=== PATIENT | male | born 1960 | race Caucasian/White ===

== ENCOUNTER 2016-11-28 06:26 | Day surgery (SDC) | payer BC ==
--- NOTE | ~2016-11-28 | EGD ---
EGD REPORT [facility] [address] [address] NAME: IRENE MOFFETT : [birth year] STATUS : REG [facility] PAT#: [id number] AGE: 56 ADM/REG DATE : 11/28/16 MR#: [id number] REPORT SERV DATE: 11/28/16 DICTATED BY: LAVERN BETTENCOURT DATE: 11/28/16 REPORT STATUS : Draft TRANSCRIBED BY: [facility] DATE: 11/28/16 [facility] Patient Name: Irene Moffett Date of : 1960 Attending MD: LAVERN BETTENCOURT MD Procedure Date No Time: 11/28/2016 Procedure: Colonoscopy Indications: Screening for colorectal malignant neoplasm, Personal history of malignant neoplasm of the prostate Referring MD: MANUEL WATKINS MD Medicines: Propofol per Anesthesia Complications: No immediate complications. Estimated blood loss: None. Procedure: Pre-Anesthesia Assessment: - After reviewing the risks and benefits, the patient was deemed in satisfactory condition to undergo the procedure. - Prior to the procedure, a History and Physical was performed, and patient medications and allergies were reviewed. The patient's tolerance of previous anesthesia was also reviewed. The risks and benefits of the procedure and the sedation options and risks were discussed with the patient. All questions were answered, and informed consent was obtained. Prior Anticoagulants: The patient has taken no previous anticoagulant or antiplatelet agents. ASA Grade Assessment: III - A patient with severe systemic disease. After reviewing the risks and benefits, the patient was deemed in satisfactory condition to undergo the procedure. After I obtained informed consent, the scope was passed under direct vision. Throughout the procedure, the patient's blood pressure, pulse, and oxygen saturations were monitored continuously. The CF [id number] was introduced through the anus and advanced to the cecum, identified by appendiceal orifice and ileocecal valve. The colonoscopy was somewhat difficult due to significant looping and the patient's body habitus. Successful completion of the procedure was aided by applying abdominal pressure. The ileocecal valve and appendiceal orifice were photographed. The patient tolerated the procedure well. The quality of the bowel preparation was adequate. The bowel preparation used was polyethylene glycol (PEG). Scope withdrawal time was greater than 10 minutes. Findings: EGD REPORT [address] [place]. [address] NAME: IRENE MOFFETT : [birth year] STATUS : REG [facility] PAT#: [id number] AGE: 56 ADM/REG DATE : 11/28/16 MR#: [id number] REPORT SERV DATE: 11/28/16 DICTATED BY: LAVERN BETTENCOURT DATE: 11/28/16 REPORT STATUS : Draft TRANSCRIBED BY: [employer] DATE: 11/28/16 The perianal and digital rectal examinations were normal. Pertinent negatives include normal sphincter tone. A sessile polyp was found at the hepatic flexure. The polyp was 4 mm in size. The polyp was removed with a cold biopsy forceps. Resection and retrieval were complete. Estimated blood loss: none. A sessile polyp was found in the sigmoid colon. The polyp was 6 mm in size. The polyp was removed with a cold snare. Resection and retrieval were complete. Estimated blood loss: none. The exam was otherwise without abnormality. Impression: - One 4 mm polyp at the hepatic flexure. Resected and retrieved. - One 6 mm polyp in the sigmoid colon. Resected and retrieved. - The examination was otherwise normal. Recommendation: - Discharge patient to home (ambulatory). - Return to previous diet. - Continue present medications. - Await pathology results. - Repeat colonoscopy in 5 years for surveillance. - Patient has a contact number available for emergencies. The signs and symptoms of potential delayed complications were discussed with the patient. Return to normal activities tomorrow. Written discharge instructions were provided to the patient. Procedure Code(s): --- Professional --- 87266, Colonoscopy, flexible, proximal to splenic flexure; with removal of tumor(s), polyp(s), or other lesion(s) by snare technique 22501, 59, Colonoscopy, flexible, proximal to splenic flexure; with biopsy, single or multiple Diagnosis Code(s): --- Professional --- D12.5, Benign neoplasm of sigmoid colon D12.3, Benign neoplasm of transverse colon Z12.11, Encounter for screening for malignant neoplasm of colon Z85.46, Personal history of malignant neoplasm of prostate CPT copyright 2013 [employer]. All rights reserved. The codes documented in this report are preliminary and upon business process architect review may be revised to meet current compliance requirements. EGD REPORT [facility] [address] [address] NAME: IRENE MOFFETT : [birth year] STATUS : REG [facility] PAT#: [id number] AGE: 56 ADM/REG DATE : 11/28/16 MR#: [id number] REPORT SERV DATE: 11/28/16 DICTATED BY: LAVERN BETTENCOURT DATE: 11/28/16 REPORT STATUS : Draft TRANSCRIBED BY: [employer] DATE: 11/28/16 LAVERN BETTENCOURT MD 11/28/2016 8:20 AM This report has been signed electronically. Number of Addenda: 0 Note Initiated On: 11/28/2016 7:45 AM Scope Withdrawal Time 0 hours 10 minutes 21 seconds [address] [address]
[~2016-11-28 06:26] MED LIST: MULTIPLE VIT PO; PRILO PO; PRIN20 PO
== END 2016-11-28 23:59 | disposition home or self-care (01) ==
LOC: DMU 06:26
PROVIDERS: Internal Medicine Gastroenterology
PROC: 0DBK8ZZ Excision of Ascending Colon, Via Natural or Artificial Opening Endoscopic (ICD-10-PCS; principal; 2016-11-28 08:00)
PROC: 0DBN8ZZ Excision of Sigmoid Colon, Via Natural or Artificial Opening Endoscopic (ICD-10-PCS; 2016-11-28 08:00)
DX: Z12.11 Encounter for screening for malignant neoplasm of colon (principal); Z85.46 Personal history of malignant neoplasm of prostate; D12.3 Benign neoplasm of transverse colon; K63.5 Polyp of colon; K21.9 Gastro-esophageal reflux disease without esophagitis; I10 Essential (primary) hypertension; G47.33 Obstructive sleep apnea (adult) (pediatric); M17.0 Bilateral primary osteoarthritis of knee; Z99.89 Dependence on other enabling machines and devices; Z90.79 Acquired absence of other genital organ(s); Z79.899 Other long term (current) drug therapy; Z98.890 Other specified postprocedural states
CPT/HCPCS: 88305